=== PATIENT | female | born 2005 | race Two or more races ===

== ENCOUNTER 2025-01-13 12:01 | Observation (INO) | payer SELFPAY ==
[2025-01-13 12:26] LABS: BASOPHILS ABSOLUTE AUTO 0.05 K/uL (0.00-0.20); BASOPHILS PERCENT AUTO 0.3 % (0.0-1.0); EOSINOPHILS ABSOLUTE AUTO 0.02 K/uL (0.00-0.45); EOSINOPHILS PERCENT AUTO 0.1 % (0.0-6.0); IMMATURE GRAN ABSOLUTE AUTO 0.06 K/uL (0.00-0.05); IMMATURE GRAN PERCENT AUTO 0.3 % (0.0-0.4); LYMPHOCYTES ABSOLUTE AUTO 2.54 K/uL (1.00-4.80); LYMPHOCYTES PERCENT AUTO 13.7 % (24.0-44.0); MEAN PLATELET VOLUME 8.7 fL (9.4-12.3); MONOCYTES ABSOLUTE AUTO 0.92 K/uL (0.00-0.80); MONOCYTES PERCENT AUTO 5.0 % (0.0-8.0); NEUTROPHILS ABSOLUTE AUTO 14.94 K/uL (1.80-7.70); NEUTROPHILS PERCENT AUTO 80.6 % (41.0-71.0); NRBC ABSOLUTE 0.00 K/uL (0.00-0.02); NRBC PERCENT 0.0 /100WBC (0.0-0.2); PLATELET COUNT,PLT 479 K/uL (150-400); RED BLOOD CELL COUNT 5.40 M/uL (4.10-5.30); WHITE BLOOD CELL COUNT,WBC 18.53 K/uL (3.9-11.3)
[2025-01-13] MEDS ORDERED: Naloxone 0.4 MG/ML SDV IVPUSH PRN ×2 (12:40→17:31)
[2025-01-13 12:45] LABS: A/G RATIO 0.9 (0.9-1.6); ALANINE AMINOTRANSFERASE,ALT 24.0 IU/L (14-63); ASPARTATE AMNIOTRANSFERASE,AST 19.0 IU/L (15-37); BILIRUBIN TOTAL 0.5 mg/dL (0.2-1.0); BLOOD UREA NITROGEN,BUN 8.0 mg/dL (7.0-18.0); CARBON DIOXIDE,CO2 26.3 mmol/L (21.0-32.0); CHLORIDE,CL 102.0 mmol/L (98-107); CREATININE 0.6 mg/dL (0.6-1.0); EST CRCL DRUG DOSING (CG) 117.31 mL/min; GLUCOSE RANDOM 112.0 mg/dL (74-106); POTASSIUM,K 3.9 mmol/L (3.5-5.1); PROTEIN TOTAL,TP 8.6 g/dL (6.4-8.2); SODIUM,NA 137.0 mmol/L (136-145)
[2025-01-13 12:47] LABS: ESTIMATED GFR 123.0 mL/min (>60)
[2025-01-13] MEDS: Ondansetron 4 MG/2 ML SDV IVPUSH ONE (13:09)
[2025-01-13] MEDS: Iopamidol 755 MG/ML 500 ML Multipack Bottle IVPUSH STA (13:50)
[2025-01-13] MEDS: fentaNYL 100 MCG/2 ML SDV IVPUSH ONE (14:41)
[2025-01-13] MEDS: Ketorolac 30 MG/ML SDV IVPUSH ONE (16:51)
[2025-01-13 17:04] LABS: APPEARANCE,URINE CLEAR; GLUCOSE,URINE NEGATIVE (NEGATIVE); OCCULT BLOOD,URINE NEGATIVE (NEGATIVE)
[2025-01-13 17:13] LABS: EPITHELIAL CELLS,URINE RARE (NONE-FEW)
[2025-01-13] MEDS ORDERED: Sodium Chloride 0.9% 2.5 ML Syringe FLUSH PRN (17:31)
[2025-01-13] MEDS ORDERED: Sodium Chloride 0.9% 10 ML Syringe FLUSH PRN (17:31)
[2025-01-13] MEDS ORDERED: Ondansetron 4 MG/2 ML SDV IVPUSH PRN (17:31)
[2025-01-13] MEDS: Lactated Ringers 1,000 ML IV SCH (19:04)
[2025-01-14 06:23] LABS: BASOPHILS ABSOLUTE AUTO 0.02 K/uL (0.00-0.20); BASOPHILS PERCENT AUTO 0.2 % (0.0-1.0); EOSINOPHILS ABSOLUTE AUTO 0.11 K/uL (0.00-0.45); EOSINOPHILS PERCENT AUTO 1.0 % (0.0-6.0); IMMATURE GRAN ABSOLUTE AUTO 0.03 K/uL (0.00-0.05); IMMATURE GRAN PERCENT AUTO 0.3 % (0.0-0.4); LYMPHOCYTES ABSOLUTE AUTO 2.37 K/uL (1.00-4.80); LYMPHOCYTES PERCENT AUTO 21.3 % (24.0-44.0); MEAN PLATELET VOLUME 8.7 fL (9.4-12.3); MONOCYTES ABSOLUTE AUTO 0.85 K/uL (0.00-0.80); MONOCYTES PERCENT AUTO 7.6 % (0.0-8.0); NEUTROPHILS ABSOLUTE AUTO 7.74 K/uL (1.80-7.70); NEUTROPHILS PERCENT AUTO 69.6 % (41.0-71.0); NRBC ABSOLUTE 0.00 K/uL (0.00-0.02); NRBC PERCENT 0.0 /100WBC (0.0-0.2); PLATELET COUNT,PLT 374 K/uL (150-400); RED BLOOD CELL COUNT 4.49 M/uL (4.10-5.30); WHITE BLOOD CELL COUNT,WBC 11.12 K/uL (3.9-11.3)
[2025-01-14] MEDS ORDERED: Ondansetron 4 MG/2 ML SDV IVPUSH PRN (07:47)
[2025-01-14] MEDS ORDERED: Albuterol 0.083% 2.5 MG/3 ML Neb Soln NEB PRN (07:47)
[2025-01-14] MEDS ORDERED: Naloxone 0.4 MG/ML SDV IVPUSH PRN (07:47)
[2025-01-14] MEDS ORDERED: fentaNYL 50 MCG/ML SDV IVPUSH PRN (07:47)
[2025-01-14] MEDS ORDERED: fentaNYL 100 MCG/2 ML SDV ONE ×2 (10:45→12:17)
[2025-01-14] MEDS ORDERED: Midazolam 1 MG/ML 2 ML SDV ONE (10:45)
[2025-01-14] MEDS ORDERED: dexmedeTOMIDine HCl 200 MCG/2 ML SDV ONE (10:46)
[2025-01-14] MEDS ORDERED: Propofol 200 MG/20 ML SDV ONE (10:46)
[2025-01-14] MEDS ORDERED: Ropivacaine 0.5% 5 MG/ML 30 ML SDV ONE (10:50)
[2025-01-14] MEDS ORDERED: Indocyanine Green 25 MG SDV ONE (11:15)
[2025-01-14] MEDS ORDERED: Dexamethasone 4 MG/ML 5 ML MDV ONE (12:36)
[2025-01-14] MEDS ORDERED: Ondansetron 4 MG/2 ML SDV ONE (12:36)
[2025-01-14] MEDS ORDERED: Esmolol 100 MG/10 ML SDV ONE (12:41)
[2025-01-14] MEDS ORDERED: Ketorolac 30 MG/ML SDV ONE (13:12)
[2025-01-14] MEDS: Acetaminophen/HYDROcodone 325-5 MG Tab PO PRN (22:03)
== END 2025-01-14 22:30 | disposition home or self-care (01) ==
LOC: EDBD 12:01 → MW.ED 12:01 → MERGE 17:31 → MW.MS 17:31
PROVIDERS: ADMIT Surgery; ATTEND Surgery
DX: K80.00 Calculus of gallbladder with acute cholecystitis without obstruction (principal); K21.9 Gastro-esophageal reflux disease without esophagitis; E66.01 Morbid (severe) obesity due to excess calories
CPT/HCPCS: 36415; 47562; 64486; 74177; 76705; 80053; 81001; 83690; 83735; 84703; 85025; 87040; 96365; 96366; 96375; 99285; A9270; G0378; J0665; J1100; J1171; J1805; J1885; J2003; J2250; J2270; J2405; J2543; J2704; J2795; J3010; J7030; J7120; J7999; Q9967; 00790; 64488; J2371; J3490